=== PATIENT | male | born 1975 | race Caucasian/White ===

== ENCOUNTER 2016-11-20 00:41 | Emergency (ER) | payer BC ==
[~2016-11-20] VITALS: Ht 170.2 cm; Wt 111.9 kg
[2016-11-20 01:04] LABS: ADD MIUA? NO; BILIRUBIN NEGATIVE; BLOOD NEGATIVE; COLOR STRAW ((YELLOW)); GLUCOSE (STRIP) NEGATIVE; KETONES NEGATIVE; LEUKOCYTES NEGATIVE; NITRITE NEGATIVE; PROTEIN (STRIP) NEGATIVE; SPECIFIC GRAVITY 1.006 (1.000-1.030); UROBILINOGEN 0.2 MG/DL (0.2-1.0)
[2016-11-20 01:13] LABS: MCH 29.7 PG (29.0-34.0); MCHC 33.4 G/DL (30.0-36.0); MCV 88.7 FL (86-99); MEAN PLAT.VOLUME 9.6 uM^3 (9.0-12.4); PLATELET COUNT 334 K/uL (156-360); RBC DIS.WIDTH-CV 12.3 % (11.8-14.6); RBC DIS.WIDTH-SD 39.5 % (39-53); RED BLOOD COUNT 4.62 M/uL (4.00-5.50); WHITE BLOOD COUNT 7.1 K/uL (4.1-10.2)
[2016-11-20 01:16] LABS: AMPHETAMINE NEGATIVE (500 ng/mL); BENZODIAZEPINES PRESUMPTIVE POSITIVE (150 ng/mL); COCAINE PRESUMPTIVE POSITIVE (150 ng/mL); METHAMPHETAMINE NEGATIVE (500 ng/mL); OPIATES (MORPHINE) NEGATIVE (100 ng/mL); PHENCYCLIDINE NEGATIVE (25 ng/mL); THC CANNABINOIDS NEGATIVE (50 ng/mL)
[2016-11-20 01:17] LABS: ADD MEDTOX COMMENT Y; BARBITURATES NEGATIVE (200 ng/mL); INTERNAL CONTROLS VALID? YES; METHADONE NEGATIVE (200 ng/mL); OXYCODONE NEGATIVE (100 ng/mL); PROPOXYPHENE NEGATIVE (300 ng/mL); TRICYCLIC ANTIDEPRESSANTS NEGATIVE (300 ng/mL)
[2016-11-20 01:22] LABS: CHLORIDE 107 mEq/L (99-109); POTASSIUM 3.7 mEq/L (3.7-5.4); SODIUM 143 mEq/L (136-147)
[2016-11-20 01:24] LABS: GLUCOSE 92 mg/dL (70-99)
[2016-11-20 01:25] LABS: ANION GAP 11 MEQ/L (2-14)
[2016-11-20 01:26] LABS: TOTAL BILIRUBIN 0.4 mg/dL (0.0-1.0)
[2016-11-20 01:27] LABS: SERUM ETHYL ALCOHOL 122 mg/dL
[2016-11-20 01:28] LABS: ALKALINE PHOSPHATASE 67 IU/L (3-129); GFR ESTIMATE (CALCULATED) > 59 mL/min/
[2016-11-20 01:29] LABS: UREA NITROGEN (BUN) 8 mg/dL (9-23)
[2016-11-20 02:04] LABS: BENZODIAZEPINES, URINE SCREEN POSITIVE (200 ng/mL)
[2016-11-20 02:39] VITALS: BP 123/80
== END 2016-11-20 02:50 | disposition home or self-care (01) ==
LOC: EME 00:41
PROVIDERS: Emergency Medicine
DX: F19.10 Other psychoactive substance abuse, uncomplicated (principal); F10.129 Alcohol abuse with intoxication, unspecified; Y90.6 Blood alcohol level of 120-199 mg/100 ml; S50.811A Abrasion of right forearm, initial encounter; X78.9XXA Intentional self-harm by unspecified sharp object, initial encounter
CPT/HCPCS: 80053; 81003; 84999; 85027; 90837; 99281; 99285; G0480

== ENCOUNTER 2016-11-22 12:45 | Inpatient (IN) | payer OTHER ==
[~2016-11-22] VITALS: Ht 170.2 cm; Wt 109.0 kg
[2016-11-22 14:42] LABS: HEMATOCRIT 43.4 % (38.0-50.0); MCH 30.4 PG (29.0-34.0); MCHC 33.6 G/DL (30.0-36.0); MCV 90.2 FL (86-99); MEAN PLAT.VOLUME 9.9 uM^3 (9.0-12.4); PLATELET COUNT 300 K/uL (156-360); RBC DIS.WIDTH-CV 12.6 % (11.8-14.6); RBC DIS.WIDTH-SD 40.9 % (39-53); RED BLOOD COUNT 4.81 M/uL (4.00-5.50)
[2016-11-22 14:55] LABS: CHLORIDE 104 mEq/L (99-109); POTASSIUM 4.1 mEq/L (3.7-5.4); SODIUM 140 mEq/L (136-147)
[2016-11-22 14:57] LABS: GLUCOSE 97 mg/dL (70-99)
[2016-11-22 14:58] LABS: ANION GAP 11 MEQ/L (2-14)
[2016-11-22 15:00] LABS: GFR ESTIMATE (CALCULATED) > 59 mL/min/; SERUM ETHYL ALCOHOL < 10 mg/dL
[2016-11-22 15:01] LABS: UREA NITROGEN (BUN) 15 mg/dL (9-23)
[2016-11-22 17:47] LABS: AMPHETAMINE NEGATIVE (500 ng/mL); BARBITURATES NEGATIVE (200 ng/mL); BENZODIAZEPINES PRESUMPTIVE POSITIVE (150 ng/mL); COCAINE PRESUMPTIVE POSITIVE (150 ng/mL); INTERNAL CONTROLS VALID? YES; METHADONE NEGATIVE (200 ng/mL); METHAMPHETAMINE NEGATIVE (500 ng/mL); OPIATES (MORPHINE) NEGATIVE (100 ng/mL); OXYCODONE NEGATIVE (100 ng/mL); PHENCYCLIDINE NEGATIVE (25 ng/mL); PROPOXYPHENE NEGATIVE (300 ng/mL); THC CANNABINOIDS NEGATIVE (50 ng/mL); TRICYCLIC ANTIDEPRESSANTS NEGATIVE (300 ng/mL)
[2016-11-22 17:48] LABS: ADD MEDTOX COMMENT Y
[2016-11-22] MEDS ORDERED: KLONOPIN0.5 M1 PO (18:31)
[2016-11-22] MEDS ORDERED: NASONEX17 GM BOTH NARES (18:32)
[2016-11-22] MEDS ORDERED: PRILOSEC OTC20 MG PO (18:32)
[2016-11-22 18:35] LABS: BENZODIAZEPINES, URINE SCREEN POSITIVE (200 ng/mL)
[2016-11-22 18:55] VITALS: BP 149/65
[2016-11-22 18:57] VITALS: BP 149/65
[2016-11-23 07:48] VITALS: BP 116/56
[2016-11-23 15:22] VITALS: BP 146/92
[2016-11-23 18:24] VITALS: BP 131/81
[2016-11-24 09:20] VITALS: BP 136/65
[2016-11-24 15:35] VITALS: BP 119/91
[2016-11-25 08:55] VITALS: BP 112/73
[2016-11-25 15:31] VITALS: BP 139/103
[2016-11-25 18:22] VITALS: BP 129/85
[2016-11-26 08:10] VITALS: BP 103/55
[2016-11-26 16:16] VITALS: BP 135/85
[2016-11-27 07:38] VITALS: BP 116/61
[2016-11-27 15:27] VITALS: BP 137/89
[2016-11-28 08:08] VITALS: BP 112/56
[2016-11-28] MEDS ORDERED: EFFEXOR XR37.5 MG PO (09:39)
== END 2016-11-28 11:03 | disposition home or self-care (01) | DRG 897 ==
LOC: EME 12:45 → 1WEST 17:50 → EDOF 17:50 → 1WEST 18:42
DX: F16.99 Hallucinogen use, unspecified with unspecified hallucinogen-induced disorder (principal); R45.851 Suicidal ideations; F32.9 Major depressive disorder, single episode, unspecified; F13.90 Sedative, hypnotic, or anxiolytic use, unspecified, uncomplicated; F15.90 Other stimulant use, unspecified, uncomplicated; F11.10 Opioid abuse, uncomplicated; F41.8 Other specified anxiety disorders
CPT/HCPCS: 80048; 80053; 81003; 84999; 85027; 90837; 90839; 97150 GO; 97165 GO; 99281; 99285; G0480; J0572; J0574; Q0177